=== PATIENT | male | born 1975 | race Caucasian/White ===

== ENCOUNTER 2019-10-25 16:55 | Emergency (ER) | payer SELFPAY ==
[2019-10-25 17:01] VITALS: BP 149/83; PULSE 82; TEMP 97.9; BMI 30.9
--- NOTE | 2019-10-25 17:16 | PDOC ---
History of Present Illness - General Chief Complaint: Allergic Reaction Stated Complaint: ALLERGIC REACTION Time Seen by Provider: 10/25/19 17:07 - History of Present Illness Initial Comments: 10/25/19 17:13 43-year-old male without comorbidities presents for evaluation of contact dermatitis. Seen by his primary care physician he is on prednisone which she started 2 hours ago steroid cream and Benadryl. He states the medication has not worked yet. Past History - Medical History Allergies/Adverse Reactions: Allergies Allergy/AdvReac Type Severity Reaction Status Date / Time No Known Allergies Allergy Verified 10/25/19 16:56 COPD: No - Immunization History Immunization Up to Date: No - Psycho-Social/Smoking History Smoking History: Never smoked - Substance Abuse Hx (Audit-C & DAST Scrn) How often the patient has a drink containing alcohol: 2-4 times / month Score: In Men: 4 or > Positive; In Women: 3 or > Positive: 2 Screen Result (Pos requires Nsg. Audit-10AR): Negative In the last yr the pt used illegal drug/Rx for NonMed reason: No Score: Yes response is considered Positive: 0 Screen Result (Positive result requires Nsg. DAST-10): Negative Review of Systems - Review of Systems Constitutional: No: Fever Respiratory: No: Shortness of Breath, Wheezing Integumentary: Yes: Pruritus, Rash *Physical Exam - Vital Signs Last Vital Signs Temp Pulse Resp BP Pulse Ox 97.9 F 82 20 149/83 96 10/25/19 16:56 10/25/19 16:56 10/25/19 16:56 10/25/19 16:56 10/25/19 16:56 - Physical Exam General Appearance: Yes: Appropriately Dressed. No: Apparent Distress HEENT: positive: Symmetrical Neck: positive: Supple Respiratory/Chest: positive: Normal Breath Sounds. negative: Respiratory Distress Musculoskeletal: positive: Normal Inspection Extremity: positive: Normal Inspection Integumentary: positive: Other (There are raised wheals on the forearms lateral aspect of both shins behind the right ear. No indication of secondary infection.) Medical Decision Making - Medical Decision Making 10/25/19 17:14 Patient will need more time with medications. I advised him and encouraged him to use the topical medication as well. Benadryl for itching continue with the prednisone as prescribed. Return to the emergency room for worsening symptoms. I have reviewed the pathophysiology with the patient. They are in agreement with the treatment plan all questions were answered to their satisfaction. Understanding for follow-up without fail was also conveyed to the patient. Again they are in agreement. Discharge - Discharge Information Problems reviewed: Yes Clinical Impression/Diagnosis: Contact dermatitis Condition: Stable Disposition: HOME - Admission No - Follow up/Referral Referrals: Paul Glez MD [Staff Physician] - - Patient Discharge Instructions Additional Instructions: Continue medication as directed and return to the emergency room should symptoms worsen. Follow-up with your primary care physician without fail in 1 to 2 days. - Post Discharge Activity
== END 2019-10-25 17:16 | disposition home or self-care (01) ==
LOC: JERFT 16:55 → JER 16:55 → JERFT 17:16
DX: L23.9 Allergic contact dermatitis, unspecified cause (principal)
CPT/HCPCS: 99283-25